=== PATIENT | male | born 1995 | race Caucasian/White ===

== ENCOUNTER 2023-12-23 10:45 | Emergency (ER) | payer OTHER ==
[~2023-12-23] VITALS: Ht 175.3 cm; Wt 89.9 kg
[2023-12-23 10:48] VITALS: BP 142/93; PULSE 82; RESP 14; TEMP 97.7; O2SAT 96
[2023-12-23] MEDS: LIDOCAINE 5% 1 EA PATCH TP ONE (12:17)
[2023-12-23] MEDS: KETOROLAC 30 MG/ML VIAL IM ONE (12:17)
[2023-12-23 13:14] LABS: BILIRUBIN,URINE NEGATIVE (NEGATIVE); COLOR,URINE YELLOW (YELLOW); LEUKOCYTE ESTERASE ,URINE NEGATIVE (NEGATIVE); NITRITE, URINE NEGATIVE (NEGATIVE); PROTEIN,URINE NEGATIVE (NEGATIVE); UGLUCOSE NEGATIVE (NEGATIVE); UROBILINOGEN,URINE 0.2 EU/dL (0.2 - 1)
[2023-12-23 13:30] VITALS: O2SAT 96
[2023-12-23 13:42] LABS: BACTERIA,URINE FEW /HPF (None Seen); SQUAMOUS EPITHELIAL CELL,UR 0-3 (FEW) /LPF (0-3 (FEW)); YEAST,URINE Moderate /HPF (None Seen)
[2023-12-23 13:58] LABS: APPEARANCE,URINE CLEAR (CLEAR)
[2023-12-23 13:59] LABS: BLOOD, URINE 1+ (NEGATIVE); RBC,URINE 0-5 /HPF (0-5); WBC,URINE 0-5 /HPF (0-5)
[2023-12-23] MEDS ORDERED: CYCL-711 PO (14:14)
[2023-12-23] MEDS ORDERED: FLUC200T PO (14:14)
[2023-12-23] MEDS ORDERED: NAPR-337 PO (14:14)
[2023-12-23] MEDS ORDERED: LID5T TP (14:14)
[2023-12-23 14:29] VITALS: BP 133/72; PULSE 88; RESP 16; TEMP 97.7; O2SAT 99
== END 2023-12-23 14:29 | disposition home or self-care (01) ==
LOC: MED 10:45
DX: M62.830 Muscle spasm of back (principal); N30.00 Acute cystitis without hematuria; Z79.1 Long term (current) use of non-steroidal anti-inflammatories (NSAID); Z79.899 Other long term (current) drug therapy
CPT/HCPCS: 81001; 82948; 96372; 99283; J1885